=== PATIENT | female | born 1955 | race Caucasian/White ===

== ENCOUNTER 2016-11-11 10:04 | Day surgery (SDC) | payer BC, OTHER ==
[~2016-11-11 10:04] MED LIST: Lactated Ringers 1,000 ML IV SCH; Sodium Chloride 0.9% 5 ML Syringe FLUSH PRN
[2016-11-11] MEDS ORDERED: Propofol 200 MG/20 ML SDV ONE ×2 (10:52→11:12)
[2016-11-11] MEDS ORDERED: Midazolam 1 MG/ML 2 ML SDV ONE (10:52)
[2016-11-11] MEDS ORDERED: fentaNYL 100 MCG/2 ML SDV ONE (10:52)
[2016-11-11] MEDS ORDERED: Propofol 200 MG/20 ML SDV IV ONE (11:57)
[2016-11-11] MEDS ORDERED: fentaNYL 100 MCG/2 ML SDV IV ONE (11:57)
[2016-11-11] MEDS ORDERED: Midazolam 1 MG/ML 2 ML SDV IV ONE (11:57)
--- NOTE | 2016-11-11 12:23 | PCM.OPNOTE ---
- General Post-Op/Procedure Note Date of Surgery/Procedure: 11/11/16 Operative Procedure(s): Attempted colonoscopy. Pre Op Diagnosis: Screening colonoscopy. Left lower quadrant pain. Anesthesia Technique: MAC Primary Surgeon: Keri Rodriguez Complications: None Condition: Good Free Text/Narrative:: INFORMED CONSENT: Patient is here today for elective colonoscopy. All aspects of this procedure have been discussed with the patient. All possible complications also, including possibility of perforation, infection, pain, bleeding and unknown complications. In the event of perforation patient may need to have abdominal exploration, colon resection, colostomy and even was discussed. Anesthetic complications were handled by anesthesia department. The patient understands fully well. Patient did not have any further questions for me at the end of my interview. The patient wishes for me to proceed. PREOPERATIVE DIAGNOSIS/INDICATIONS: [screeningcolonoscopy] POSTOPERATIVE DIAGNOSIS: [normal colonoscopy up to 60 cm, descending colon] INSTRUMENT USED: Olympus videocolonoscope. ASA CLASSIFICATION: [2] ANESTHESIA: Continuous EKG, oximetry and intermittent blood pressure and respiratory monitoring were performed throughout the procedure. IV Versed and Fentanyl were administered. PROCEDURE PERFORMED: Colonoscopy to the distal descending colon POSITIONS OF PATIENT: Left lateral. RECTUM: Normal. SIGMOID COLON: Normal. Distal DESCENDING COLON: Normal. The scope could not be advanced further due to extreme tortuosity and for fear of perforation. The patient has had 3 C- sections and bilateral oophorectomy procedures in the pelvis. Consequently I suspect that she has a lot of pelvic adhesions that have altered the anatomy of the colon. BIOPSY: None. TOLERANCE: Excellent. COMPLICATIONS: None.
[2016-11-11 14:39] VITALS: BP 119/81
--- NOTE | 2016-11-29 09:10 | OR ---
DATE OF SURGERY: 11/11/2016 SURGEON: Keri Rodriguez MD ADDENDUM Correction to the operative note for 11/11/2016. OPERATIVE PROCEDURE: Attempted colonoscopy. PREOPERATIVE DIAGNOSIS: Screening colonoscopy. /[id number]/MODL MTDD
== END 2016-11-11 14:05 | disposition home or self-care (01) ==
LOC: KA.SDS 10:04
PROVIDERS: ATTEND Family Medicine
DX: Z12.11 Encounter for screening for malignant neoplasm of colon (principal); E55.9 Vitamin D deficiency, unspecified; Z90.722 Acquired absence of ovaries, bilateral; Z98.890 Other specified postprocedural states
CPT/HCPCS: 45378; J2250; J2704; J3010; J7120

== ENCOUNTER 2023-12-06 11:52 | Emergency (ER) | payer MEDICARE, OTHER | END 2023-12-06 12:45 | disposition home or self-care (01) | LOC: KA.ED 11:52 → MERGE 11:52 → KA.ED 12:45 | DX: S22.32XA Fracture of one rib, left side, initial encounter for closed fracture (principal); W18.30XA Fall on same level, unspecified, initial encounter | CPT/HCPCS: 71101-LT; 99283; 99284 ==